=== PATIENT | female | born 1995 | race Caucasian/White ===

== ENCOUNTER 2022-08-14 22:50 | Emergency (ER) | payer OTHER ==
[~2022-08-14] VITALS: Ht 162.6 cm; Wt 64.2 kg
[2022-08-14 22:51] VITALS: BP 123/69
[2022-08-14] MEDS ORDERED: LAMI1TAB9 PO (23:12)
[2022-08-14] MEDS ORDERED: SPIR50TA4 PO (23:12)
[2022-08-14] MEDS ORDERED: ABIL30TA4 PO (23:12)
[2022-08-14] MEDS ORDERED: ADDE10CA3 PO (23:12)
[2022-08-14] MEDS ORDERED: ALDA100T PO (23:12)
[2022-08-15 00:08] LABS: BASO % 0.2 % (0.0-1.0); EOS % 0.2 % (0.0-3.0); HEMATOCRIT 40.4 % (36.0-47.0); HEMOGLOBIN 13.3 g/dl (12.0-15.5); LYMPH % 20.3 % (24.0-44.0); MEAN CORPUSCULAR HEMOGLOBIN 29.6 pg (27.0-33.0); MEAN CORPUSCULAR HGB CONC 32.9 g/dl (32.0-36.5); MEAN CORPUSCULAR VOLUME 89.8 fl (80.0-96.0); MONO # 0.8 10^3/uL (0.0-0.8); MONO % 8.4 % (2.0-8.0); NEUTROPHILS % 70.7 % (36.0-66.0); PLATELET COUNT, AUTOMATED 246 10^3/uL (150-450); WHITE BLOOD COUNT 9.9 10^3/uL (4.0-10.0)
[2022-08-15 00:26] LABS: HCG, SERUM QUALITATIVE NEGATIVE (NEGATIVE)
[2022-08-15 00:33] LABS: ALBUMIN 4.1 GM/DL (3.2-5.2); ALT/SGPT 25 U/L (12-78); BILIRUBIN,DIRECT 0.2 MG/DL (0.0-0.2); BILIRUBIN,TOTAL 0.5 MG/DL (0.2-1.0); BLOOD UREA NITROGEN 14 MG/DL (7-18); CALCIUM LEVEL 9.6 MG/DL (8.5-10.1); CARBON DIOXIDE LEVEL 26 MEQ/L (21-32); CHLORIDE LEVEL 104 MEQ/L (98-107); CREATININE FOR GFR 0.99 MG/DL (0.55-1.30); GLOMERULAR FILTRATION RATE > 60.0 (>60); GLUCOSE, FASTING 92 MG/DL (70-100); LIPASE 78 U/L (73-393); POTASSIUM SERUM 4.1 MEQ/L (3.5-5.1); SODIUM LEVEL 137 MEQ/L (136-145); TOTAL PROTEIN 7.6 GM/DL (6.4-8.2)
== END 2022-08-15 01:54 | disposition home or self-care (01) ==
LOC: M ED 22:50
DX: R42 Dizziness and giddiness (principal); F90.9 Attention-deficit hyperactivity disorder, unspecified type

== ENCOUNTER 2023-06-26 20:19 | Emergency (ER) | payer OTHER ==
[~2023-06-26] VITALS: Ht 162.6 cm; Wt 65.9 kg
[~2023-06-26 20:19] MED LIST: ABIL30TA4 PO; ADDE10CA3 PO; ALDA100T PO; LAMI1TAB9 PO; SPIR50TA4 PO
[2023-06-26] MEDS ORDERED: ADDE20CA3 PO (21:04)
[2023-06-26 21:11] LABS: HEMATOCRIT 41.2 % (36.0-47.0); HEMOGLOBIN 13.3 g/dl (12.0-15.5); MEAN CORPUSCULAR HEMOGLOBIN 29.8 pg (27.0-33.0); MEAN CORPUSCULAR HGB CONC 32.3 g/dl (32.0-36.5); MEAN CORPUSCULAR VOLUME 92.4 fl (80.0-96.0); PLATELET COUNT, AUTOMATED 243 10^3/uL (150-450); RED BLOOD COUNT 4.46 10^6/uL (4.00-5.40); WHITE BLOOD COUNT 7.8 10^3/uL (4.0-10.0)
[2023-06-26 21:28] LABS: AMPHETAMINES LEVEL URINE NEGATIVE (NEGATIVE)
[2023-06-26 21:29] LABS: BARBITURATES URINE NEGATIVE (NEGATIVE); BENZODIAZEPINES URINE NEGATIVE (NEGATIVE); COCAINE METABOLITE URINE NEGATIVE (NEGATIVE); METHADONE URINE NEGATIVE (NEGATIVE); OPIATES URINE NEGATIVE (NEGATIVE); PHENCYCLIDINE URINE NEGATIVE (NEGATIVE)
[2023-06-26 21:30] LABS: ETHYL ALCOHOL (ETHANOL) < 0.003 % (0.000-0.010)
[2023-06-26 21:31] LABS: HCG, SERUM QUALITATIVE NEGATIVE (NEGATIVE)
[2023-06-26 21:32] LABS: ALBUMIN 4.1 G/DL (3.2-5.2); ALKALINE PHOSPHATASE 51 U/L (46-116); ALT/SGPT 18 U/L (7.0-40); AST/SGOT 11 U/L (<34); BILIRUBIN,DIRECT 0.2 MG/DL (<0.4); BILIRUBIN,TOTAL 0.4 MG/DL (0.3-1.2); BLOOD UREA NITROGEN 13 MG/DL (9-23); CALCIUM LEVEL 9.4 MG/DL (8.5-10.1); CARBON DIOXIDE LEVEL 26 MMOL/L (20-31); CHLORIDE LEVEL 106 MMOL/L (98-107); CREATININE FOR GFR 1.05 MG/DL (0.55-1.30); GLOMERULAR FILTRATION RATE > 60.0 (>60); GLUCOSE, FASTING 87 MG/DL (60-100); SALICYLATE LEVEL < 3.0 MG/DL (<30); SODIUM LEVEL 142 MMOL/L (136-145); TOTAL PROTEIN 6.9 G/DL (5.7-8.2)
[2023-06-26 21:33] LABS: ACETAMINOPHEN LEVEL < 2.0 UG/ML (10.0-20.0)
[2023-06-26 21:35] LABS: CANNABINOIDS URINE POSITIVE (NEGATIVE)
[2023-06-26 21:36] LABS: THYROID STIMULATING HORMONE 2.555 uIU/ML (0.55-4.78)
[2023-06-26] MEDS ORDERED: ADDE20TA PO (22:31)
[2023-06-26] MEDS ORDERED: LAMO150T3 PO (22:33)
[2023-06-26] MEDS ORDERED: CLON1TAB8 PO (22:33)
[2023-06-26] MEDS ORDERED: HOME MED LIST COMPLETE! XX SCH (22:35)
[2023-06-27] MEDS ORDERED: ADDERALL 5 MG TAB PO SCH (09:00)
[2023-06-27] MEDS ORDERED: SPIRONOLACTONE 50 MG TAB PO SCH (09:00)
[2023-06-27 12:54] VITALS: BP 107/64; TEMP 97.2; O2SAT 95
[2023-06-27] MEDS ORDERED: ARIPiprazole 10 MG TAB PO SCH (21:00)
[2023-06-27] MEDS ORDERED: lamoTRIgine 100MG TAB PO SCH (21:00)
[2023-06-27] MEDS ORDERED: clonazePAM 1 MG TAB PO SCH (21:00)
== END 2023-06-27 12:55 | disposition home or self-care (01) ==
LOC: M ED 20:19
DX: F31.30 Bipolar disorder, current episode depressed, mild or moderate severity, unspecified (principal); F90.9 Attention-deficit hyperactivity disorder, unspecified type; F41.9 Anxiety disorder, unspecified; F12.10 Cannabis abuse, uncomplicated